=== PATIENT | female | born 1950 | race Caucasian/White ===

== ENCOUNTER 2019-01-19 17:59 | Inpatient (IN) | payer MEDICARE ==
[~2019-01-19] VITALS: Ht 157.5 cm; Wt 66.2 kg
--- NOTE | 2019-01-19 18:04 | NUR ---
PT BIBRA FROM HOME C/O WITNESSED SYNCOPAL EPISODE, -HEADINJURY, NOTED BLEEDING ON THE CONTINUOUS GLUCOSE MONITOR, AWARE, PT IS AAOX4, NOT IN RESPIRATORY DISTRESS, HOOKED TO MONITOR, KEPT RESTED AND COMFORTABLE,WILL CONTINUE TO MONITOR.
--- NOTE | 2019-01-19 18:20 | NUR ---
AT BEDSIDE FOR EVAL.
[2019-01-19] MEDS ORDERED: LIDOCAINE 1%-EPI 1:100,000 20 ML VIAL ONE (18:27)
[2019-01-19] MEDS ORDERED: LIDOCAINE 1%-EPI 1:100,000 20 ML VIAL IJ ONE (18:30)
[2019-01-19] MEDS ORDERED: IV NS 0.9% 500 ML BAG IV ONE (18:30)
[2019-01-19 18:54] LABS: BASOPHILS # (AUTO) 0.1 /CMM (0.0-0.2); BASOPHILS % (AUTO) 0.8 % (0.0-2.0); EOSINOPHILS % (AUTO) 1.9 % (0.0-6.0); HEMATOCRIT 34 % (33-45); HEMOGLOBIN 11.1 g/dL (11.5-14.8); LYMPHOCYTES # (AUTO) 1.9 /CMM (0.8-4.8); LYMPHOCYTES % (AUTO) 22.3 % (20.0-44.0); MEAN CORPUSCULAR HGB CONC 33 g/dl (31.0-36.0); MEAN CORPUSCULAR VOLUME 90 fL (82-100); MONOCYTES # (AUTO) 0.7 /CMM (0.1-1.30); MONOCYTES % (AUTO) 7.6 % (2.0-12.0); NEUTROPHILS # (AUTO) 5.8 /CMM (1.8-8.9); NEUTROPHILS % (AUTO) 67.4 % (43.0-81.0); PLATELET COUNT (AUTO) 249 /CMM (150-450); RED BLOOD CELL COUNT(AUTO) 3.72 MIL/uL (4.0-5.2); WHITE BLOOD COUNT (AUTO) 8.6 K/uL (4.3-11.0)
[2019-01-19 19:03] LABS: CALCIUM, SERUM 10.1 mg/dL (8.5-10.1); CREATININE 1.3 mg/dL (0.6-1.3); POTASSIUM 5.4 mmol/L (3.5-5.1)
--- NOTE | 2019-01-19 19:07 | NUR ---
REPORT GIVEN TO BETSY GAUTHIER FOR JENN.
[2019-01-19 19:08] LABS: ALBUMIN 3.2 g/dL (3.4-5.0); BILIRUBIN,DIRECT 0.2 mg/dL (0.0-0.2); TOTAL PROTEIN, SERUM 6.7 g/dL (6.4-8.2)
--- NOTE | 2019-01-19 19:25 | NUR ---
AT BEDSIDE FOR SUTURE
--- NOTE | 2019-01-19 20:01 | NUR ---
TRANSFER PACKET GIVEN TO ADMITTING.
--- NOTE | 2019-01-19 20:10 | NUR ---
Patient is resting comfortably in bed with eyes closed. Easily aroused. VSS
--- NOTE | 2019-01-19 21:11 | NUR ---
EPIC HOSE TENDER PAGED
--- NOTE | 2019-01-19 21:26 | NUR ---
CALLED FOR TELE BED
--- NOTE | 2019-01-19 21:34 | NUR ---
Patient is resting comfortably in bed. Easily aroused. VSS
--- NOTE | 2019-01-19 21:53 | NUR ---
RECIEVED BED 324-1
[2019-01-19] MEDS ORDERED: ZOLPIDEM TARTRATE 5 MG TABLET PO PRN (22:00)
[2019-01-19] MEDS ORDERED: ACETAMINOPHEN 325 MG TABLET PO PRN (22:00)
[2019-01-19] MEDS ORDERED: Z GUARD REMEDY 2 OZ OINT TP PRN (22:00)
[2019-01-19] MEDS ORDERED: ONDANSETRON HCL/PF 4 MG/2 ML VIAL IVP PRN (22:00)
[2019-01-19] MEDS ORDERED: MAGNESIUM HYDROXIDE 30 ML UDC PO PRN (22:00)
[2019-01-19] MEDS ORDERED: MAG HYDROX/AL HYDROX/SIMETH 30 ML UDC PO PRN (22:00)
[2019-01-19] MEDS ORDERED: HYDROCODONE/APAP 5/325MG 1 EACH TABLET PO PRN (22:00)
--- NOTE | 2019-01-19 22:07 | NUR ---
REPORT GIVEN TO BRANDON MEYER FOR JENN
--- NOTE | 2019-01-19 22:07 | NUR ---
Burak carmichael in ED - 01/19/19 at 2207 by BETSY REPROT GIVEN TO BRANDON FONSECA JENN
--- NOTE | 2019-01-19 22:39 | NUR ---
MS MEYER PT REQUESTED TO HAVE HER BLOOD CHECKED. BLOOD SUGAR AT 382 MG/DL Addendum: 01/20/19 at 7 by LEAH GIFFORD RN TIME CHECKED AT 2339 NOT 9 01/19/19 Addendum: 01/20/19 at 327 by LEAH GIFFORD RN AT 2339 01/19/19 PT REQUESTED TO HAVE HER BLOOD SUGAR TO BE CHECKED.
[2019-01-19] MEDS: IV NS 0.9% 1,000 ML IV SCH (22:44)
[2019-01-19 22:45] VITALS: BP 118/60
[2019-01-19 23:00] VITALS: BP 118/60
[2019-01-19] MEDS ORDERED: *INSULIN REGULAR(HUMULIN R)HUM 100 UNIT/ML VIAL SQ PRN (23:00)
[2019-01-19] MEDS ORDERED: INSULIN REGULAR, HUMAN 100 UNIT/ML 3 ML VIAL SQ PRN (23:00)
[2019-01-19] MEDS ORDERED: DEXTROSE 50%-WATER 50 ML DISP.SYRIN IV PRN (23:00)
--- NOTE | 2019-01-19 23:00 | NUR ---
RECEIVED PT VIA GURNEY FROM E[facility]R [facility] ART 2240 PT A/O X 3, STABLE AND NOT APPARENT DISTRESS, 02 SAT R.A 98%, NO COMPLAIN OF PAIN AT THIS TIME. HEAD TO TOE ASSESSMENT IS DONE. PT ON CONTINUOS GLUCOSE MONITORING DEVICE IN LEFT LOWER QUADRANT (UNATTACHED) PT HAD S/P SIMPLE INTERRUPTED SUTURES IN THE E.R NO S/S OF BLEEDING NOTED. KEPT CLEAN, DRY AND COMFORTABLE. SAFETY MEASURES AT ALL TIMES. WILL CONTINUE TO MONITOR.
--- NOTE | 2019-01-19 23:05 | NUR ---
MS RN PT CANNOT RECALL LIST HOME MEDICATION PER PT SHE'S ON ANTICOAGULANT AND INSULIN PUMP. PT VERBALIZED "MY FRIEND WILL BRING THE LIST OF MY HOME MEDICINE TOMORROW AM"
--- NOTE | 2019-01-20 00:01 | NUR ---
MS MEYER PER OIL FIELD RIG BUILDER NO ON STOCK R INSULIN
--- NOTE | 2019-01-20 00:10 | NUR ---
JUANY AND SPOKE TO DR. XAVIER RELAYED RECENT BLOOD SUGAR PER DR XAVIER GIVE INSULIN MODERATE SLIDING SCALE HS. 10 UNITS. WILL CONTINUE TO MONITOR Addendum: 01/20/19 at 0120 by LEAH GIFFORD RN Recent blood sugar of 382mg/dl
--- NOTE | 2019-01-20 06:15 | NUR ---
ASLEEP AND EASILY AWAKEN, RESPIRATIONS EVEN AND UNLABORED. NO C/O OF PAIN AT THIS TIME. AM CARE RENDERED. NEEDS ATTENDED AND ANTICIPATED. KEPT CLEAN, DRY AND COMFORTABLE AT ALL TIMES. SAFETY MEASURES AT ALL TIMES. WILL ENDORSE NEXT SHIFT POC.
--- NOTE | 2019-01-20 06:16 | NUR ---
WILL ENDORSE NEXT SHIFT TO FF UP HOME MEDICATION OF THE PATIENT. PATIENT CANNOT PROVIDE INFO AT THIS TIME PT CANNOT RECALL. PER PT FRIEND WILL PROVIDE THE LIST OF HOME MEDS TODAY
[2019-01-20] MEDS: BLOOD SUGAR DIAGNOSTIC 1 EACH STRIP VI SCH ×2 (06:34→11:48)
[2019-01-20 07:09] LABS: BASOPHILS % (AUTO) 0.3 % (0.0-2.0); EOSINOPHILS % (AUTO) 0.6 % (0.0-6.0); HEMATOCRIT 30 % (33-45); HEMOGLOBIN 9.9 g/dL (11.5-14.8); LYMPHOCYTES # (AUTO) 1.6 /CMM (0.8-4.8); MEAN CORPUSCULAR HGB CONC 33 g/dl (31.0-36.0); MEAN CORPUSCULAR VOLUME 89 fL (82-100); MONOCYTES # (AUTO) 0.7 /CMM (0.1-1.30); MONOCYTES % (AUTO) 8.2 % (2.0-12.0); NEUTROPHILS # (AUTO) 5.8 /CMM (1.8-8.9); NEUTROPHILS % (AUTO) 70.9 % (43.0-81.0); PLATELET COUNT (AUTO) 269 /CMM (150-450); RED BLOOD CELL COUNT(AUTO) 3.36 MIL/uL (4.0-5.2); WHITE BLOOD COUNT (AUTO) 8.2 K/uL (4.3-11.0)
[2019-01-20] MEDS ORDERED: CARV6.252 PO (07:49)
[2019-01-20] MEDS ORDERED: ATOR40TA PO (07:49)
[2019-01-20] MEDS ORDERED: RANO500T3 PO (07:49)
[2019-01-20] MEDS ORDERED: INSU100V SQ (07:49)
[2019-01-20] MEDS ORDERED: CITA20TA16 PO (07:49)
[2019-01-20] MEDS ORDERED: BENA10TA11 PO (07:49)
[2019-01-20] MEDS ORDERED: CLOP75TA15 PO (07:49)
--- NOTE | 2019-01-20 07:54 | NUR ---
LABORER AMMUNITION ASSEMBLY OPENING NOTE PATIENT IN BED RESTING COMFORTABLY. PATIENT IN NO ACUTE DISTRESS. NO SOB NOTED. PATIENT BREATHING IS EVEN AND UNLABORED. PATIENT ON CARDIAC MONITORING, READING SINUS RHYTHM HR 77. NEEDS AND CONCERNS ADDRESSED. PATIENT BED ALARM IS ON. PATIENT BED IS LOCKED AND IN LOWEST POSITION. CALL LIGHT WITHIN REACH. WILL CONTINUE TO MONITOR.
[2019-01-20 08:00] VITALS: BP 129/62
[2019-01-20 08:07] LABS: CALCIUM, SERUM 8.8 mg/dL (8.5-10.1); CREATININE 1.2 mg/dL (0.6-1.3); MAGNESIUM 1.7 mg/dL (1.8-2.4); PHOSPHORUS 3.4 mg/dL (2.5-4.9); POTASSIUM 4.7 mmol/L (3.5-5.1)
[2019-01-20] MEDS: IV NS 0.9% 1,000 ML IV SCH (08:12)
[2019-01-20] MEDS ORDERED: ASPI-1169 PO (11:28)
--- NOTE | 2019-01-20 12:03 | NUR ---
SCHOOL BUS DRIVER NOTES PATIENT BLOOD SUGAR WAS 65, RECHECKED BLOOD SUGAR AFTER PATIENT DRANK A BOX OF CRANBERRY JUICE AND BLOOD SUGAR IS NOW 86. PATIENT IS CURRENTLY EATING LUNCH AT THIS TIME.
[2019-01-20] MEDS ORDERED: MAGNESIUM OXIDE 400 MG TABLET PO ONE (12:30)
--- NOTE | 2019-01-20 13:42 | NUR ---
GOLD MINER BLASTINGWIND PLANT MANAGER NOTE PATIENT MEDICALLY CLEARED FOR DISCHARGED. PATIENT IN NO ACUTE DISTRESS. NO SOB NOTED. PATIENT BREATHING IS EVEN AND UNLABORED. PATIENT VITAL SIGNS WNL, SINUS RHYTHM HR 70. PATIENT SKIN ASSESSED, NO NEW SKIN BREAKDOWN NOTED. PATIENT SUTURES DRY AND INTACT. PATIENT ID BAND REMOVED AND IV REMOVED. DC INSTRUCTIONS PROVIDED TO PATIENT, PATIENT VERBALIZED UNDERSTANDING. PATIENT SIGNED DC PAPERWORK AND SIGNED BELONGINGS LIST AND HAS ALL BELONGINGS WITH HER. PATIENT KEPT CLEAN, DRY, AND COMFORTABLE THROUGHOUT SHIFT. ENCOURAGED TO MOVE AND REPOSITION HERSELF MUCH POSSIBLE THROUGHOUT SHIFT. PATIENT TO GO BACK HOME WITH FRIEND. PATIENT IS AMBULATORY WITH A STEADY GAIT BACK TO FRIENDS CAR. MD MADE AWARE OF DISCHARGE.
== END 2019-01-20 13:25 | disposition home or self-care (01) | DRG 74 ==
LOC: ER 18:03 → TELE 22:30
PROVIDERS: ADMIT Family Medicine; ATTEND Hospitalist
DX: G90.8 Other disorders of autonomic nervous system (principal); E44.1 Mild protein-calorie malnutrition; D64.9 Anemia, unspecified; E86.9 Volume depletion, unspecified; E87.5 Hyperkalemia; E88.09 Other disorders of plasma-protein metabolism, not elsewhere classified; Z68.26 Body mass index [BMI] 26.0-26.9, adult; I10 Essential (primary) hypertension; I25.10 Atherosclerotic heart disease of native coronary artery without angina pectoris; I25.2 Old myocardial infarction; E10.65 Type 1 diabetes mellitus with hyperglycemia; E10.42 Type 1 diabetes mellitus with diabetic polyneuropathy; E10.319 Type 1 diabetes mellitus with unspecified diabetic retinopathy without macular edema; H54.7 Unspecified visual loss; Z95.5 Presence of coronary angioplasty implant and graft; G89.29 Other chronic pain; M54.5 Low back pain
CPT/HCPCS: 36415; 80048-TC; 80061-TC; 80076-TC; 82962-TC; 83690-TC; 83735-TC; 84100-TC; 85025-TC; 85730-TC; 87081-TC; A6403; G0378; J1815; J3490; J7030; J7040